=== PATIENT | male | born 1960 | race Hispanic/Latino ===

== ENCOUNTER 2022-12-06 06:33 | Day surgery (SDC) | payer BC ==
[2022-12-02 11:25] LABS: BASOPHILS # (AUTO) 0.01 K/uL (0.00-0.20); BASOPHILS % (AUTO) 0.2 % (0.0-5.0); EOSINOPHILS # (AUTO) 0.08 K/uL (0.00-0.70); EOSINOPHILS % (AUTO) 1.5 % (0.0-8.0); HEMATOCRIT 42.8 % (42-54); IMMATURE GRANULOCYTE ABSOLUTE 0.02 K/uL (0-1); LYMPHOCYTES # (AUTO) 1.8 K/uL (1.0-4.8); LYMPHOCYTES % (AUTO) 33.8 % (21.0-51.0); MEAN CORPUSCULAR HEMOGLOBIN 29.8 pg (27.0-33.0); MEAN CORPUSCULAR HGB CONC 32.5 g/dL (32.0-36.0); MEAN CORPUSCULAR VOLUME 91.6 fL (79-99); MONOCYTES # (AUTO) 0.4 K/uL (0.1-1.0); MONOCYTES % (AUTO) 8.3 % (3.0-13.0); NEUTROPHILS # (AUTO) 2.9 K/uL (1.8-7.7); NEUTROPHILS % (AUTO) 55.8 % (40.0-77.0); PLATELET COUNT (AUTO) 200 K/uL (130-400); RED BLOOD CELL COUNT(AUTO) 4.67 MIL/uL (4.50-6.20); WHITE BLOOD COUNT (AUTO) 5.3 K/uL (4.8-10.8)
[2022-12-02 11:31] LABS: POTASSIUM 4.3 mmol/L (3.5-5.1)
[2022-12-05 09:08] VITALS: BP 137/72; PULSE 70; RESP 19
[2022-12-06] VITALS (19 sets, daily range): BP systolic 83–126; BP diastolic 53–76; PULSE 65–86; RESP 11–19
[~2022-12-06] VITALS: Ht 175.3 cm; Wt 111.0 kg
[~2022-12-06 06:33] MED LIST: ATOR40TA71 PO; EMPA25TA PO; GLIP10TA9 PO; LOSA50TA64 PO; METF-446 PO; MONT-39 PO; SEMA0.258 SQ
[2022-12-06] MEDS ORDERED: 0.9%NACL 1000ML 1,000 ML IV ONE (07:11)
[2022-12-06] MEDS ORDERED: HYDR-4068 PO (07:25)
[2022-12-06] MEDS ORDERED: LIDOCAINE PF 100MG/5ML (2%) SYRINGE 5ML ONE (08:54)
[2022-12-06] MEDS ORDERED: MIDAZOLAM HCL 1 MG/ML 2ML VIAL ONE (08:55)
[2022-12-06] MEDS ORDERED: ROCURONIUM 10MG/1ML SYR 10 MG/ML ML ONE (08:55)
[2022-12-06] MEDS ORDERED: LIDOCAINE HCL 4% LTA SOL 4 ML VIAL ONE (08:55)
[2022-12-06] MEDS ORDERED: FENTANYL CITRATE PF 50 MCG/1 ML 2ML VIAL ONE (08:55)
[2022-12-06] MEDS ORDERED: KETAMINE 50MG/ML SYRINGE 50 MG/ML DISP.SYRIN ONE (08:58)
[2022-12-06] MEDS: CEFAZOLIN SODIUM 2 GM VIAL ONE ×2 (08:58→10:30)
[2022-12-06] MEDS ORDERED: ROPIVACAINE 0.5% 5MG/ML 30ML IJ ONE (08:58)
[2022-12-06] MEDS ORDERED: PROPOFOL 10 MG/ML 20ML VIAL IV ONE (09:00)
[2022-12-06] MEDS ORDERED: DEXMEDETOMIDINE HCL 200 MCG/2 ML VIAL IV ONE (09:00)
[2022-12-06] MEDS ORDERED: DEXAMETHASONE SOD PHOSPHATE 4 MG/ML 1ML VIAL ONE (09:28)
[2022-12-06] MEDS ORDERED: DEXAMETHASONE SOD PHOSPHATE 10MG/ML 1ML VIAL ONE (09:29)
[2022-12-06] MEDS ORDERED: PHENYLEPHRINE HCL 10 MG/ML 1ML VIAL IV ONE (10:21)
[2022-12-06] MEDS ORDERED: GLYCOPYRROLATE 1 MG/5 ML SYRINGE ONE (10:57)
[2022-12-06] MEDS ORDERED: ONDANSETRON 4MG INJ ONE (11:28)
[2022-12-06] MEDS ORDERED: NEOSTIGMINE 5MG/5ML SYR IV ONE (11:28)
[2022-12-06] MEDS ORDERED: KETOROLAC 30MG VIAL (30MG/ML) ONE (11:38)
[2022-12-06] MEDS ORDERED: MEPERIDINE-PF 25 MG/ML SYG ONE (12:06)
== END 2022-12-06 13:30 | disposition home or self-care (01) ==
LOC: DAH 06:33
PROVIDERS: ATTEND Orthopaedic Surgery
DX: M75.111 Incomplete rotator cuff tear or rupture of right shoulder, not specified as traumatic (principal); M24.111 Other articular cartilage disorders, right shoulder; M25.711 Osteophyte, right shoulder; M75.51 Bursitis of right shoulder; M17.12 Unilateral primary osteoarthritis, left knee; I10 Essential (primary) hypertension; E11.9 Type 2 diabetes mellitus without complications; G47.30 Sleep apnea, unspecified; E78.00 Pure hypercholesterolemia, unspecified; E66.9 Obesity, unspecified; J45.909 Unspecified asthma, uncomplicated; Z79.01 Long term (current) use of anticoagulants; Z79.899 Other long term (current) drug therapy; Z98.890 Other specified postprocedural states; Z90.49 Acquired absence of other specified parts of digestive tract; Z68.36 Body mass index [BMI] 36.0-36.9, adult
CPT/HCPCS: 80048; 85025; 36415; 29822; 64415; 82948 ×2; A6260; J1100 ×2; A6207; J7030 ×2; J7120; A4565; A4452; J3010; J3490 ×3; J2710; J2001; J2250; J2704; J2405; J1885; J2175; J2795; J2371; J0690; A4649 ×3; A5120; A4215; A4223; A4222; A4221; A4663